=== PATIENT | male | born 1975 | race Caucasian/White ===

== ENCOUNTER 2022-08-17 07:19 | Day surgery (SDC) | payer MEDICAID ==
[~2022-08-17] VITALS: Ht 177.8 cm; Wt 167.0 kg
[2022-08-17] MEDS ORDERED: MEPERIDINE HCL/PF 25 MG/ML DISP.SYRIN ONE (08:30)
[2022-08-17] MEDS ORDERED: MIDAZOLAM HCL 5 MG/5 ML VIAL ONE (08:30)
[2022-08-17 14:51] VITALS: BP_SYST 128
== END 2022-08-17 10:45 | disposition home or self-care (01) ==
LOC: SOR 07:19 → SMU 07:24 → SOR 10:45
PROVIDERS: ATTEND Internal Medicine Gastroenterology
DX: E66.01 Morbid (severe) obesity due to excess calories (principal); K21.9 Gastro-esophageal reflux disease without esophagitis; K29.50 Unspecified chronic gastritis without bleeding; M19.90 Unspecified osteoarthritis, unspecified site; Z68.43 Body mass index [BMI] 50.0-59.9, adult; Z79.899 Other long term (current) drug therapy; Z20.822 Contact with and (suspected) exposure to COVID-19
CPT/HCPCS: 43239; 87426; 87081; 36415; 88305; 88312; 88313; 99152; G0378; J2250; J2175